=== PATIENT | female | born 1990 | race Caucasian/White ===

== ENCOUNTER 2016-12-10 06:55 | Inpatient (IN) | payer OTHER ==
[2016-12-10] MEDS ORDERED: ELECTROLYTE-148 SOLN 1,000 ML IV SCH (07:00)
[2016-12-10] MEDS ORDERED: AMPICILLIN - 2 GM in SODIUM CHLORIDE 100 ML IVPB ONE (07:00)
[2016-12-10] MEDS ORDERED: FENTANYL/BUPIVACAINE/NS/PF - PCEA - 50 ML DISP.SYRIN EP SCH ×2 (07:45→08:25)
[2016-12-10 07:47] LABS: ACTIVATED PTT 26.8 SECONDS (26.9-34.4)
[2016-12-10 07:49] VITALS: BMI 36.8
[2016-12-10 07:57] LABS: CALCIUM 8.5 mg/dL (8.5-10.1); COCKROFT - GAULT 251.719; CREATININE 0.5 mg/dL (0.55-1.02)
[2016-12-10] MEDS ORDERED: OXYTOCIN 15 UNITS/ LR 250 ML 250 ML IVPB SCH (08:40)
--- NOTE | 2016-12-10 10:28 | HP ---
Past Medical History - Primary Care Physician PCP:: Gloria Lozano - Admission Chief Complaint: 26 rs , 39.4 weeks , onset LP since 4.00AM. pt in active labor History of Present Illness: PNC at 1, [facility] 32 lbs wt gain . Work Up: B pos, Rpr nr, Hbsag neg, Rubella pos, Quantifero neg, Hiv neg , GBS neg. 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 Weeks Gestation by Dates: 39.0 ...EDC by Dates: 12/17/16 ...EDC by Sono: 12/17/16 Heme/Onc: Yes: Anemia Infectious Disease: No: HIV Psych: No: Addictions, Anxiety, Depression Endocrine: No: Diabetes Mellitus, Hyperthyroidism, Hypothyroidism - Past Surgical History Past Surgical History: Yes: None Hx Myomectomy: No Hx Transabdominal Cerclage: No - Smoking History Smoking history: Never smoked Have you smoked in the past 12 months: No Aproximately how many cigarettes per day: 0 - Alcohol/Substance Use Hx Alcohol Use: No History of Substance Use: reports: None - Social History History of Recent Travel: No Home Medications - Allergies Allergies/Adverse Reactions: Allergies Allergy/AdvReac Type Severity Reaction Status Date / Time No Known Allergies Allergy Verified 12/10/16 09:37 - Home Medications Home Medications: Ambulatory Orders Vitamins (Sjr) - 1 tab PO DAILY 09/19/16 Physical Exam - Maternity Vital Signs: Vital Signs Temperature 98.8 F 12/10/16 10:00 Pulse Rate 96 H 12/10/16 09:45 Respiratory Rate 20 12/10/16 09:45 Blood Pressure 126/68 12/10/16 09:45 O2 Sat by Pulse Oximetry (%) 95 12/10/16 09:45 Constitutional: Yes: Well Nourished Eyes: Yes: WNL HENT: Yes: WNL, Atraumatic, Normocephalic Neck: Yes: WNL Cardiovascular: Yes: WNL Lungs: Clear to auscultation Breast(s): Yes: WNL - Abdominal Exam/OB Fundal Height: 38 Number of Fetuses: Single Presentation: Vertex Contractions: Yes Regularity: Regular Intensity: Mild/Mod Monitor Mode: External Heart Rate (range): 140-150 Heart Rate Location: [facility] Category: I Accelerations: Uniform Decelerations: None - Vaginal Exam/OB Vaginal Bleediing: No Dilatation (cm): 7 Effacement (%): 90 Amniotic Membrane Status: Ruptured (AROM clear , at 9.50 am) Presentation: Vertex/Position Station: -2 (-2/-1) - Physical Exam Musculoskeletal: Yes: WNL Extremities: Yes: WNL. No: Calf Tenderness Edema: Yes Edema: LLE: 1+, RLE: 1+ Integumentary: Yes: WNL Deep Tendon Reflex Grade: Normal +2 ...Motor Strength: WNL Psychiatric: Yes: WNL, Alert, Oriented - Labs Lab Results: CBC, BMP 12/10/16 07:15 Laboratory Tests 12/10/16 07:15 INR 1.00 PTT (Actin FS) 26.8 L Laboratory Tests 12/10/16 07:15 WBC 14.5 H D Hgb 11.8 Hct 36.1 Plt Count 300 Neutrophils % 74.1 Lymphocytes % 17.9 D Monocytes % 7.2 Eosinophils % 0.6 Basophils % 0.2 Problem List - Problems (1) with 39 completed weeks gestation Code(s): Z3A.39 - 39 WEEKS GESTATION OF (2) Labor established Code(s): TAQ6600 - Assessment/Plan 26 yrs , 39.4 weeks admitted in active labor Plan Trial vaginal delivery Epidural labor analgesia started at 7.40 am Pitocin Augmentation was started at 8.40 a.
[2016-12-10 11:51] LABS: BASOPHIL 0.2 % (0-2.0); EOSINOPHIL 0.6 % (0-4.5); MCH 29.6 pg (25.7-33.7); MCHC 32.7 g/dl (32.0-36.0); MEAN CELL VOLUME 90.5 fl (80-96); MEAN PLT VOLUME 8.2 fl (7.5-11.1); NEUTROPHILS 74.1 % (42.8-82.8); PLATELET COUNT 300 K/MM3 (134-434); RDW 13.9 % (11.6-15.6); WHITE BLOOD COUNT 14.5 K/mm3 (4.0-10.0)
--- NOTE | 2016-12-10 12:59 | PN ---
Progress Note, Labor Vaginal Exam #1 Labor Exam Date: 12/10/16 Labor Exam Time: 11:50 Heart Rate (range): 140-150 Dilatation: 8-9 Effacement (%): 90 Amniotic Membrane Status: Ruptured Presentation: Vertex/Position Station: -1 Remarks: fhr cat-1 uc 1-4 min pt needs epidural top off Selected Entries 12/10/16 12/10/16 10:00 12:45 Temperature 98.8 F Pulse Rate 105 H Blood Pressure 111/69 Vaginal Exam #2 Labor Exam Date: 12/10/16 Labor Exam Time: 13:30 Heart Rate (range): 140 Dilatation: 8-9 Effacement (%): 90 Amniotic Membrane Status: Ruptured Presentation: Vertex/Position Station: -1 Remarks: uc q2-4 min FHR cat-1 2.00 pm management handed over to Dr Mix
[2016-12-10] MEDS ORDERED: AMPICILLIN - 1 GM in SODIUM CHLORIDE 100 ML IVPB SCH (14:21)
[2016-12-10] MEDS: AMPICILLIN - 1 GM in SODIUM CHLORIDE 100 ML IVPB SCH ×2 (14:45→17:04)
[2016-12-10] MEDS: IBUPROFEN 600 MG TABLET (FP) PO PRN ×2 (15:30→21:20)
[2016-12-10] MEDS ORDERED: WITCH HAZEL 50% (TUCKS) 40 PAD/JAR PAD TP PRN ×2 (16:48→17:07)
[2016-12-10] MEDS ORDERED: METHYLERGONOVINE MALEATE 0.2 MG/1 ML AMP IM PRN ×2 (16:48→17:07)
[2016-12-10] MEDS ORDERED: BENZOCAINE 28 GM HEMORRHOIDAL OINTMENT TP PRN ×2 (16:48→17:07)
[2016-12-10] MEDS ORDERED: BISACODYL 10 MG SUPP.RECT RC PRN ×2 (16:48→17:07)
[2016-12-10] MEDS ORDERED: BENZOCAINE 20% 57 GM BOTTLE TP PRN ×2 (16:48→17:07)
[2016-12-10] MEDS ORDERED: OXYTOCIN IV ONE (17:00)
[2016-12-10] MEDS ORDERED: [UNRECOGNIZED DRUG - OTHER] IV ONE (17:00)
[2016-12-10] MEDS ORDERED: ACETAMINOPHEN 325 MG TABLET (FP) PO PRN (17:07)
[2016-12-10] MEDS ORDERED: IBUPROFEN 600 MG TABLET (FP) PO PRN (17:07)
[2016-12-10] MEDS ORDERED: D5W-LR W/ 20 UNITS OXYTOCIN 1,000 ML IV SCH ×2 (17:15→17:30)
[2016-12-10] MEDS: ACETAMINOPHEN 325 MG TABLET (FP) PO PRN ×2 (17:57→21:21)
[2016-12-10] MEDS: FERROUS SO4 325 MG TABLET (FP) PO SCH (21:20)
[2016-12-11] MEDS: IBUPROFEN 600 MG TABLET (FP) PO PRN ×5 (03:53→21:40)
[2016-12-11] MEDS: ACETAMINOPHEN 325 MG TABLET (FP) PO PRN ×5 (03:53→21:39)
[2016-12-11 08:31] LABS: BASOPHIL 0.3 % (0-2.0); EOSINOPHIL 0.8 % (0-4.5); MCH 29.8 pg (25.7-33.7); MCHC 32.6 g/dl (32.0-36.0); MEAN CELL VOLUME 91.5 fl (80-96); MEAN PLT VOLUME 8.1 fl (7.5-11.1); NEUTROPHILS 70.6 % (42.8-82.8); PLATELET COUNT 259 K/MM3 (134-434); RDW 14.5 % (11.6-15.6); WHITE BLOOD COUNT 16.5 K/mm3 (4.0-10.0)
[2016-12-11] MEDS: FERROUS SO4 325 MG TABLET (FP) PO SCH ×2 (09:32→21:39)
[2016-12-11] MEDS: PRENATAL VITAMINS W/ FOLIC ACID TABLET (FP) PO SCH (09:32)
[2016-12-11] MEDS ORDERED: PRENATAL VITAMINS W/ FOLIC ACID TABLET (FP) PO SCH (10:00)
--- NOTE | 2016-12-11 12:06 | PN ---
Progress Note (short form) - Note Progress Note: ppd 1 doing well, no c/o CBC, BMP 12/11/16 07:40 12/10/16 07:15 uterus firm, non tender lochia mild no calf tenderness plan ambulate, d/c home in am
[2016-12-11] MEDS ORDERED: SENNOSIDES/DOCUSATE COMBO (SENNA PLUS) TABLET (UD) PO PRN ×2 (16:48→22:00)
[2016-12-12] MEDS: IBUPROFEN 600 MG TABLET (FP) PO PRN ×2 (06:23→10:35)
[2016-12-12] MEDS: ACETAMINOPHEN 325 MG TABLET (FP) PO PRN ×2 (06:23→10:34)
[2016-12-12 08:27] VITALS: BP 112/60; PULSE 98; TEMP 97.7
[2016-12-12] MEDS: FERROUS SO4 325 MG TABLET (FP) PO SCH (09:03)
[2016-12-12] MEDS: PRENATAL VITAMINS W/ FOLIC ACID TABLET (FP) PO SCH (09:03)
--- NOTE | 2016-12-12 11:32 | DS ---
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 Vital Signs: Vital Signs Temperature 97.7 F 12/12/16 08:25 Pulse Rate 98 H 12/12/16 08:25 Respiratory Rate 18 12/12/16 08:25 Blood Pressure 112/60 12/12/16 08:25 O2 Sat by Pulse Oximetry (%) 100 12/10/16 16:15 Constitutional: Yes: Well Nourished, No Distress, Calm Eyes: Yes: WNL, Conjunctiva Clear, EOM Intact HENT: Yes: WNL, Atraumatic, Normocephalic Neck: Yes: WNL, Supple, Trachea Midline Cardiovascular: Yes: WNL, Regular Rate and Rhythm Respiratory: Yes: WNL, Regular, CTA Bilaterally Gastrointestinal: Yes: WNL ...Rectal Exam: Yes: WNL Renal/: Yes: WNL ....Post : Yes: Uterus firm, Uterus non-tender, Slight lochia rubra Breast(s): Yes: WNL Musculoskeletal: Yes: WNL Extremities: Yes: WNL Edema: No Edema: LLE: Trace, RLE: Trace Integumentary: Yes: WNL Neurological: Yes: WNL, Alert, Oriented ...Motor Strength: WNL Psychiatric: Yes: WNL, Alert, Oriented Labs: CBC, BMP 12/11/16 07:40 12/10/16 07:15 Delivery - Delivery Vaginal Delivery: Spontaneous (no complication) Type of Anesthesia: Epidural Episiotomy/Laceration: 1st degree EBL (cc): 300 Delivery, Single - Stages of Labor Date 1st Stage Initiatied: 12/10/16 Time 1st Stage Initiated: 04:00 Date 2nd Stage Initiated: 12/10/16 Time 2nd Stage Initiated: 15:05 Date of Delivery: 12/10/16 Time of Delivery: 15:08 Time Placenta Delivered: 15:12 Placenta: Yes: Spontaneous - Condition of Infant 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 Present: No Gender: Female Weight: 7 lb 12 oz Position: Left, OA Total Hours ROM (Hrs/Mins): 5hrs 22min - 1 Minute Total Score: 9 5 Minutes Total Score: 9 - [place] Feeding Plan Initial Plan: Elected not to breastfeed exclusively throughout hospitalization Discharge Summary Reason For Visit: LABOR Current Active Problems Labor established (Acute) with 39 completed weeks gestation (Acute) Condition: Good - Instructions Diet, Activity, Other Instructions: regular diet, follow up [facility] care 4 weeks Referrals: [facility] (Sydni Driver) [Outside] Luis Mix MD [Staff Physician] - Disposition: HOME - Home Medications Comprehensive Discharge Medication List: Ambulatory Orders Vitamins (Sjr) - 1 tab PO DAILY 09/19/16 Ibuprofen [Motrin -] 600 mg PO QID #28 tablet 12/11/16
== END 2016-12-12 12:30 | disposition home or self-care (01) | DRG 775 ==
LOC: JLDR 06:55 → J3W 16:45
PROVIDERS: ADMIT Obstetrics & Gynecology; ATTEND Obstetrics & Gynecology
PROC: 0HQ9XZZ Repair Perineum Skin, External Approach (ICD-10-PCS; principal; 2016-12-10)
PROC: 10E0XZZ Delivery of Products of Conception, External Approach (ICD-10-PCS; 2016-12-10)
PROC: 0W8NXZZ Division of Female Perineum, External Approach (ICD-10-PCS; 2016-12-10)
DX: O70.0 First degree perineal laceration during delivery (principal); Z3A.39 39 weeks gestation of pregnancy; Z37.0 Single live birth
CPT/HCPCS: 36415; 59409; 80048; 85025; 85610; 85730; 86593; 86850; 86900; 86901